=== PATIENT | female | born 1995 | race Caucasian/White ===

== ENCOUNTER 2020-09-24 10:04 | Emergency (ER) | payer OTHER ==
[2020-09-24 10:11] VITALS: BP 126/80
[2020-09-24] MEDS ORDERED: diphenhydrAMINE 25 MG CAPSULE PO STA (10:14)
--- NOTE | 2020-09-24 10:16 | ED Physician Documentation ---
History of Present Illness - Stated complaint Stated Complaint: FACE SWELLING - Chief complaint Chief Complaint: Allergic Rx - History obtained from History obtained from: Patient - Additonal information Additional information: 24-year-old woman with past medical history of eczema not on medications, no known drug allergies or other allergies, presents with rash to the face that started last night and persisted into the morning, worsening and causing her eyes to swell up. She also endorses some mild itching to the bilateral forearms and thighs but no rash. Denies nausea, vomiting, chest pain, shortness of breath, throat tightness, lightheadedness, headache.Of note, she started a new shampoo this Saturday. Review of Systems Ten Systems: 10 systems reviewed and negative Constitutional: denies: Fever, Chills Eyes: reports: Other (mild periorbital swelling). denies: Loss of vision Ears: denies: Ear pain Nose: denies: Rhinorrhea / runny nose Throat: reports: Other (no throat tightness, no change in voice quality) Cardiac: denies: Chest pain / pressure Respiratory: denies: Dyspnea, Cough, Wheezing GI: denies: Nausea, Vomiting Skin: reports: Rash PD PAST MEDICAL HISTORY - Past Medical History Past Medical History: Yes Cardiovascular: None Respiratory: None Neuro: None Endocrine/Autoimmune: None GI: None RESORT KEEPER: None : None HEENT: None Psych: None Musculoskeletal: None Derm: None - Past Surgical History Past Surgical History: No - Present Medications Home Medications: Ambulatory Orders Medication Instructions Recorded Confirmed Hydrocortisone 1% Oint 28 gm TP 1-2XD PRN #1 appful 09/24/20 [Hydrocortisone] - Allergies Allergies/Adverse Reactions: Allergies Allergy/AdvReac Type Severity Reaction Status Date / Time No Known Drug Allergies Allergy Verified 09/24/20 10:08 - Social History Does the pt smoke?: No Smoking Status: Former smoker Does the pt drink ETOH?: Yes Does the pt have substance abuse?: No - Immunizations Immunizations are current?: Yes PD ED PE NORMAL - Vitals Vital signs reviewed: Yes - General General: Alert and oriented X 3, No acute distress, Well developed/nourished - HEENT HEENT: Atraumatic, PERRL, EOMI, Ears normal, Moist mucous membranes, Pharynx benign - Neck Neck: Supple, no meningeal sign, Other (good air flow on neck auscultation) - Cardiac Cardiac: RRR - Respiratory Respiratory: No respiratory distress, Clear bilaterally - Abdomen Abdomen: Non tender, Non distended, Other (no rash) - Derm Derm: Other (erythematous rash to entire face with mild periorbital swelling. ) - Extremities Extremities: No edema, Other (no rash) - Neuro Neuro: Alert and oriented X 3 - Psych Psych: Normal mood, Normal affect Results - Vitals Vitals: Vital Signs - 24 hr 09/24/20 10:08 Temperature 36.5 C Heart Rate 68 Respiratory 16 Rate Blood Pressure 126/80 O2 Saturation 100 Oxygen O2 Source Room air PD MEDICAL DECISION MAKING - ED course ED course: 24-year-old woman presents with mild allergic reaction, likely to her new shampoo. Advised her to stop using that shampoo and to take Benadryl as needed. Prescription given for steroid ointment for the face. Return precautions given. Patient will follow up with her primary doctor. Departure - Departure Disposition: 01 Home, Self Care Clinical Impression: Contact dermatitis Condition: Good Instructions: ED Allergic Reaction Local Other Follow-Up: Arun Souza MD [Physician No Access] - Prescriptions: Hydrocortisone 1% Oint [Hydrocortisone] 28 gm TP 1-2XD PRN #1 appful PRN Reason: Per Physician Order Comments: You are seen in the emergency department for an allergic reaction, likely caused by your new shampoo. You can apply the ointment that I prescribed 1-2 times daily to your face for relief of symptoms, but you careful not to use it more frequently because it can thin and irritate the skin if used in excess. Wear a hat outside to protect your face when using this medicine. Return to the emergency department if you develop any new or worsening symptoms or have other concerns. I am providing you referral for an allergy pc support specialist. You may need to obtain a referral from your primary doctor depending on your insurance.
[2020-09-24] MEDS ORDERED: CHERRY SYRUP 10 ML UDC PO ONE (10:29)
[2020-09-24] MEDS ORDERED: DEXAMETHASONE 10 MG/ML VIAL PO STA (10:29)
== END 2020-09-24 10:45 | disposition home or self-care (01) ==
LOC: ED 10:04
DX: L23.9 Allergic contact dermatitis, unspecified cause (principal); Z87.891 Personal history of nicotine dependence
CPT/HCPCS: 99282; 99284; A9270

== ENCOUNTER 2021-03-14 18:19 | Emergency (ER) | payer OTHER ==
[2021-03-14 18:49] LABS: BASOPHILS % (AUTO) 0.2 %; EOSINOPHILS # (AUTO) 0.1 10^3/uL (0.0-0.7); EOSINOPHILS % (AUTO) 0.8 %; HCT - HEMATOCRIT 38.4 % (37.0-47.0); HGB - HEMOGLOBIN 12.6 g/dL (12.0-16.0); LYMPHOCYTES # (AUTO) 2.3 10^3/uL (1.5-3.5); LYMPHOCYTES % (AUTO) 25.9 %; MEAN CORPUSCULAR HEMOGLOBIN 31.7 pg (27.0-31.0); MEAN CORPUSCULAR HGB CONC 32.8 g/dL (32.0-36.0); MEAN CORPUSCULAR VOLUME 96.5 fL (81.0-99.0); MEAN PLATELET VOLUME 10.5 fL (7.9-10.8); MONOCYTES # (AUTO) 0.7 10^3/uL (0.0-1.0); NEUTROPHILS # (AUTO) 5.7 10^3/uL (1.5-6.6); NEUTROPHILS % (AUTO) 64.9 %; PLT - PLATELET COUNT 220 10^3/uL (130-450); RED BLOOD COUNT 3.98 10^6/uL (4.20-5.40); RED CELL DISTRIBUTION WIDTH 12.1 % (12.0-15.0); WHITE BLOOD COUNT 8.8 x10^3/uL (4.8-10.8)
[2021-03-14 19:06] LABS: ALBUMIN 4.2 g/dL (3.2-5.5); ALBUMIN/GLOBULIN RATIO 1.3 (1.0-2.2); BILIRUBIN,TOTAL 1.3 mg/dL (0.2-1.0); CALCIUM 9.1 mg/dL (8.5-10.3); CREATININE 1.1 mg/dL (0.4-1.0); TOTAL PROTEIN 7.4 g/dL (6.7-8.2)
[2021-03-14 19:43] LABS: BILIRUBIN,URINE NEGATIVE (NEGATIVE); GLUCOSE, URINE (UA) NEGATIVE (NEGATIVE); KETONES,URINE (UA) NEGATIVE (NEGATIVE); LEUKOCYTE ESTERASE, URINE NEGATIVE (NEGATIVE); NITRITE,URINE NEGATIVE (NEGATIVE); OCCULT BLOOD,URINE NEGATIVE (NEGATIVE); PROTEIN,URINE NEGATIVE (NEGATIVE); UROBILINOGEN,URINE 1 (NORMAL) E.U./dL (NORMAL)
[2021-03-14 19:46] LABS: CLARITY,URINE CLEAR (CLEAR); HCG UR QUAL NEGATIVE
--- NOTE | 2021-03-14 19:53 | ED Physician Documentation ---
PD HPI ABD PAIN - Stated complaint Stated Complaint: ABD PAIN - Chief complaint Chief Complaint: Abd Pain - History obtained from History obtained from: Patient - Additional information Additional information: Recently healthy 25-year-old woman with history of LEEP procedure but no real intra-abdominal procedures presents with right lower quadrant pelvic pain x2 days. Its been fairly constant, does get worse with certain motions and coughing. She denies vaginal bleeding or discharge. She is sexually active and only uses the pullout method, but doubts . No nausea or poor appetite. No chills. Review of Systems Ten Systems: 10 systems reviewed and negative Constitutional: reports: Reviewed and negative Eyes: reports: Reviewed and negative Ears: reports: Reviewed and negative Nose: reports: Reviewed and negative Throat: reports: Reviewed and negative Cardiac: reports: Reviewed and negative PD PAST MEDICAL HISTORY - Past Medical History Cardiovascular: None Respiratory: None Neuro: None Endocrine/Autoimmune: None GI: None LEAD AUDITOR: None : None HEENT: None Psych: None Musculoskeletal: None Derm: None - Past Surgical History Past Surgical History: No - Present Medications Home Medications: Ambulatory Orders Medication Instructions Recorded Confirmed No Known Home Medications 03/14/21 03/14/21 - Allergies Allergies/Adverse Reactions: Allergies Allergy/AdvReac Type Severity Reaction Status Date / Time No Known Drug Allergies Allergy Verified 03/14/21 18:33 - Social History Does the pt smoke?: No Smoking Status: Never smoker Does the pt drink ETOH?: Yes Does the pt have substance abuse?: No - Immunizations Immunizations are current?: Yes PD ED PE NORMAL - Vitals Vital signs reviewed: Yes - General General: Alert and oriented X 3, No acute distress - HEENT HEENT: PERRL, EOMI - Neck Neck: Supple, no meningeal sign, No bony TTP - Cardiac Cardiac: RRR, No murmur - Respiratory Respiratory: No respiratory distress, Clear bilaterally - Abdomen Abdomen: Normal bowel sounds, Soft, Other (Tender in the right lower quadrant without guarding or rebound. Equivocal Rovsing sign.) - Back Back: No CVA TTP, No spinal TTP - Derm Derm: Normal color, Warm and dry - Extremities Extremities: No edema, No calf tenderness / cord - Neuro Neuro: Alert and oriented X 3, Normal speech Results - Vitals Vitals: Vital Signs - 24 hr 03/14/21 03/14/21 03/14/21 18:33 19:03 19:05 Temperature 36.7 C Heart Rate 77 88 77 Respiratory 16 17 Rate Blood Pressure 119/67 113/73 O2 Saturation 99 100 98 03/14/21 19:39 Temperature Heart Rate Respiratory Rate Blood Pressure 105/73 O2 Saturation 99 Oxygen O2 Source Room air - Labs Labs: Laboratory Tests 03/14/21 03/14/21 03/14/21 18:45 18:45 19:36 WBC 8.8 RBC 3.98 L Hgb 12.6 Hct 38.4 MCV 96.5 MCH 31.7 H MCHC 32.8 RDW 12.1 Plt Count 220 MPV 10.5 Neut # (Auto) 5.7 Lymph # (Auto) 2.3 [place] # (Auto) 0.7 Eos # (Auto) 0.1 Baso # (Auto) 0.0 Absolute Nucleated RBC 0.00 Nucleated RBC % 0.0 Sodium 137 Potassium 4.0 Chloride 103 Carbon Dioxide 27 Anion Gap 7.0 BUN 13 Creatinine 1.1 H Estimated GFR (MDRD) 60 L Glucose 95 Calcium 9.1 Total Bilirubin 1.3 H AST 16 ALT 11 Alkaline Phosphatase 50 Total Protein 7.4 Albumin 4.2 Globulin 3.2 Albumin/Globulin Ratio 1.3 Lipase 47 Urine Color YELLOW Urine Clarity CLEAR Urine pH 7.0 Ur Specific [place] 1.025 Urine Protein NEGATIVE Urine Glucose (UA) NEGATIVE Urine Ketones NEGATIVE Urine Occult Blood NEGATIVE Urine Nitrite NEGATIVE Urine Bilirubin NEGATIVE Urine Urobilinogen 1 (NORMAL) Ur Leukocyte Esterase NEGATIVE Ur Microscopic Review NOT INDICATED Urine Culture Comments NOT INDICATED Urine HCG, Qual NEGATIVE - Rads (name of study) CT of the abdomen pelvis demonstrates a normal appendix but pelvic fluid surrounding the uterus and right adnexa, ultrasound recommended Radiology: EMP read contemporaneously Pelvic ultrasound demonstrates probably a complicated right ovarian cyst, radiologist notes potentially fluid out of proportion. Radiology: EMP read contemporaneously PD MEDICAL DECISION MAKING - ED course ED course: Declines pain medication on initial evaluation. test negative. Imaging demonstrates what is likely complicated ovarian cyst with rupture. Discussed findings with patient and need for repeat ultrasonography. She continued to decline pain medication while here. Departure - Departure Disposition: Home, Self Care Clinical Impression: Pelvic pain Ovarian cyst Qualifiers: Laterality: right Qualified Code(s): N83.201 - Unspecified ovarian cyst, right side Condition: Good Record reviewed to determine appropriate education?: Yes Instructions: ED Pelvic Pain [facility] Comments: As discussed, CT and ultrasound imaging demonstrate tonight that you likely have a ruptured ovarian cyst on the right. The pain should go away after a few days but I do recommend [place] consider repeat ultrasonography in a few weeks. Return if worsening.
[2021-03-14] MEDS ORDERED: IOVERSOL 320 100 ML VIAL IVP ONE (20:06)
[2021-03-14] MEDS: IOVERSOL 320 100 ML VIAL IVP ONE (20:20)
--- NOTE | 2021-03-14 20:48 | CT Report ---
PROCEDURE: Abdomen/Pelvis W INDICATIONS: IV only,RLQ pain CONTRAST: IV CONTRAST: Optiray 320 ml: 100 PO CONTRAST: *NO PO CONTRAST TECHNIQUE: After the administration of IV contrast, 5 mm thick sections acquired from the diaphragms to the symp hysis. 5 mm thick coronal and sagittal reformats were acquired. For radiation dose reduction, the f ollowing was used: automated exposure control, adjustment of mA and/or kV according to patient size. COMPARISON: None FINDINGS: Image quality: Excellent. ABDOMEN: Lung bases: Lung bases are clear. Heart size is normal. Solid organs: Liver is enlarged. Spleen is normal in size. Normal in size and enhancement. Gallblad grey is unremarkable Biliary system is non dilated. Pancreas enhances normally. No adrenal nodules. Kidneys demonstrate normal size and enhancement, without hydronephrosis. Peritoneum and bowel: Bowel loops demonstrate normal wall thickness and caliber. No free fluid or a ir. Appendix is unremarkable. Nodes and vessels: No retroperitoneal or mesenteric adenopathy by size criteria. Aorta and inferior vena cava are normal in size. Miscellaneous: No ventral hernias. PELVIS: Genitourinary: Bladder wall thickness is normal. Fluid is present within the pelvis particularly schumacher rrounding the uterus and right adnexa. There is a rim-enhancing focus within the right adnexa measuri ng 15 mm. Miscellaneous: No inguinal hernias or adenopathy. Bones: No suspicious bony lesions. No vertebral body compression fractures. IMPRESSION: 1. Pelvic fluid most prominent surrounding the uterus and right adnexal region. Focus of rim enhancem ent is noted within the right adnexa suggestive of involuting hemorrhagic cyst. Fluid could be second gigi to ruptured cyst. However, it is more prominent than typically expected. Pelvic ultrasound is rec ommended for further evaluation. 2. Appendix is normal. Reviewed by: Erika Jo MD on 03/14/2021 8:47 PM PST Approved by: Erika Jo MD on 03/14/2021 8:47 PM PST Station ID: [id number]
--- NOTE | 2021-03-14 21:47 | Ultrasound Report ---
PROCEDURE: Pelvic w/Transvag+Doppler Comp INDICATIONS: pelvic pain TECHNIQUE: Real-time scanning was performed of the pelvic organs, with image documentation. Additional endovagi nal scanning was necessary due to incomplete visualization of the adnexal and endometrial structures by transabdominal scanning. COMPARISON: CT abdomen pelvis 03/14/2021 FINDINGS: No pathologic free abdominal or pelvic fluid. Uterus: Uterus is normal in size at 7.6 x 3.6 x 5.3 cm. The endometrium measures 8.8 mm in combined thickness. Ovaries: Right ovary measures 3.8 x 3.0 x 3.9 cm, volume 22.8 cc. There is a complex focus of echoge nicity measuring 2.4 x 2.3 x 2.0 cm in the right adnexa. There is complex fluid within the right adne xa extending to the pelvis. Left ovary measures 2.8 x 2.0 x 1.6 cm, volume 4.7 cc. Vascular flow is i dentified within the ovaries bilaterally. IMPRESSION: 1. Abnormal appearance of the right adnexal region as identified on CT exam. There is a complex focus of echogenicity within the region of the right adnexa. Prominent fluid also partially complex is kendrick ntified. While hemorrhagic cyst may be present and rupture, complex fluid appears disproportionate t o a hemorrhagic cyst. Underlying etiology of the complex fluid which could represent hemorrhage is no t definitively identified. However, further investigation is recommended including correlation to pos sible and beta hCG level as an obscured ectopic rupture cannot be excluded. Reviewed by: Erika Jo MD on 03/14/2021 9:46 PM PST Approved by: Erika Jo MD on 03/14/2021 9:46 PM PST Station ID: [id number]
[2021-03-14 21:59] VITALS: BP 107/68
== END 2021-03-14 22:03 | disposition home or self-care (01) ==
LOC: ED 18:19
DX: N83.201 Unspecified ovarian cyst, right side (principal)
CPT/HCPCS: 36415; 74177; 76830; 76856; 80053; 81003; 81025; 83690; 85025; 93975; 99282; 99284; Q9967; 81001; 87086

== ENCOUNTER 2022-02-07 07:14 | Outpatient (CLI) | payer OTHER ==
--- NOTE | 2022-02-07 10:38 | MRI Report ---
PROCEDURE: WRIST WO - RT INDICATIONS: RIGHT WRIST PAIN TECHNIQUE: Noncontrast coronal proton density fast spin echo and T2 fast spin echo with fat saturation; coronal 3-D gradient echo, axial T1 spin echo and T2 fast spin echo with fat saturation, sagittal T1 spin ech o through the wrist. COMPARISON: None. FINDINGS: Image quality: Excellent. Bones and cartilage: The carpal bones are normally aligned. No bone marrow contusions or fractures. No evidence for avascular necrosis. Carpal ligaments: The scapholunate and lunotriquetral ligaments appear intact. On sagittal images, the pisohamate ligament appears intact. Triangular fibrocartilage complex: The triangular fibrocartilage appears intact. Tendons and soft tissues: There is soft tissue edema and fluid signal intensity within the adductor p ollicis muscle that is suspicious for a grade 2 strain. The adductor pollicis tendon is not well seen , which is likely related to the [id number] of the exam. The carpal tunnel structures appear edwina l, including the median nerve. The ulnar nerve appears normal within Guyon's canal. All six extenso r tendon compartments demonstrate normal morphology, without pathologic tendon sheath fluid. No soft tissue ganglion cysts. IMPRESSION: 1.Grade 2 strain/partial tear at the adductor pollicis muscle. The adductor pollicis tendon is not we ll seen, which is likely related to the [id number] of the exam centered on the wrist. Dedicated MR I of the thumb could be performed for further evaluation if indicated clinically. 2.No acute trabecular bone injury. No significant ligament or tendon injury is seen. Reviewed by: Bradley Sotelo MD on 02/07/2022 10:37 AM PDT Approved by: Bradley Sotelo MD on 02/07/2022 10:37 AM PDT Station ID: [id number]
== END 2022-02-07 07:15 | disposition home or self-care (01) ==
LOC: DI 07:14
PROVIDERS: ATTEND Student in an Organized Health Care Education/Training Program
DX: S66.811A Strain of other specified muscles, fascia and tendons at wrist and hand level, right hand, initial encounter (principal)

== ENCOUNTER 2023-09-17 12:53 | Outpatient (CLI) | payer OTHER ==
--- NOTE | 2023-09-18 08:13 | MRI Report ---
PROCEDURE: Forearm RT WO INDICATIONS: PAIN IN R FOREARM. 27-year-old female with right forearm crepitus when she flexes her f ingers. TECHNIQUE: Noncontrast coronal and sagittal T1 spin echo and STIR; axial T1 spin echo and T2 fast spin echo with fat saturation through the right forearm. COMPARISON: Right wrist MRI 02/07/2022 FINDINGS: Image quality: Excellent. Bones: The visualized bone marrow demonstrates normal signal on all sequences. The overlying cortex appears intact. No fractures lines or intra-osseous lesions. Soft tissues: A ganglion cyst is seen in the wrist at the volar aspect of the 2nd carpometacarpal pati nt due to the carpal tunnel measuring approximately 16 x 13 x 5 mm. No significant elbow or wrist eff usion. No signs of proximal or distal intersection syndrome. The flexor muscles and tendons are intac t. The scanned muscles demonstrate normal overall bulk and internal signal. Subcutaneous tissues tl ear normal as well. No soft tissue masses are present. IMPRESSION: 1.No acute trabecular bone injury. No significant ligament or tendon injury is seen. 2.Ganglion cyst along the volar aspect of the 2nd carpometacarpal joint at the wrist measures up to 1 6 mm, located deep to the carpal tunnel. This appears to be new when compared to the MRI from 022. Reviewed by: Bradley Sotelo MD on 09/18/2023 8:12 AM PDT Approved by: Bradley Sotelo MD on 09/18/2023 8:12 AM PDT Station ID: [id number]
== END 2023-09-17 12:54 | disposition home or self-care (01) ==
LOC: DI 12:53
PROVIDERS: ATTEND Orthopaedic Surgery
DX: M67.431 Ganglion, right wrist (principal)